=== PATIENT | female | born 1955 | race African-American/Black ===

== ENCOUNTER → 2019-04-24 | Outpatient (CLI) | payer BC ==
[~2019-04-24] MED LIST: ASPI-630 PO; LEVO75TA PO; OMEG1CAP28 PO
--- NOTE | 2019-04-24 15:08 | KCIC ---
BRAIN W/O CONTRAST History: Migraine. Ataxia. Syncope. History of laryngeal cancer. Technique: Multiplanar, multi sequential MR imaging was performed of the brain without contrast. Comparison: None Findings: No acute infarct. No intracranial hemorrhage. No mass effect. No hydrocephalus. Extra-axial spaces are unremarkable. Incidentally noted left frontal periventricular development of venous anomaly. Imaged orbits are unremarkable. Imaged paranasal sinuses and mastoid air cells are clear. Postoperative changes laryngectomy. Impression: 1. No acute intracranial abnormality. Electronically signed by: Driss Charles DO (04/24/2019 3:05 PM) [id number]
--- NOTE | 2019-04-24 18:00 | KCIC ---
DOPPLER CAROTID BILAT History: Syncope. Hypertension. Technique: Duplex sonography of the cervical portion of both carotid arteries was performed. Real-time grayscale, color flow Doppler, and Doppler spectral waveform analysis is performed. PQRS Compliance Statement - Stenosis calculations for CT, MR and conventional angiography are based upon measurement of the distal ICA diameter in accordance with the NASCET methodology. Stenosis calculations for carotid ultrasound studies are derived from validated velocity criteria which are known to correlate with the NASCET methodology. Findings: Right side: Peak systolic flow velocity of the CCA is 100 cm/sec. Peak systolic flow velocity of the ICA is 106 cm/sec. The ICA/CCA ratio is 1.06. Peak end diastolic flow velocity of the ICA is 39 cm/sec. The peak systolic velocity of the ECA is 53 cm/sec. Atheromatous plaque throughout the common, carotid bulb and internal carotid arteries.. Left side: Peak systolic flow velocity of the CCA is 88 cm/sec. Peak systolic flow velocity of the ICA is 146 cm/sec. The ICA/CCA ratio is 1.66. Peak end diastolic flow velocity of the ICA is 33 cm/sec. Peak systolic flow velocity of the ECA is 78 cm/sec. Atheromatous plaque throughout the left common carotid, carotid bulb and internal carotid artery.. Vertebral arteries: Bilateral vertebral arteries demonstrate antegrade flow. IMPRESSION: 1. Moderate (50-69 percent) stenosis of the left mid internal carotid artery. 2. Bilateral atheromatous plaque. Electronically signed by: Driss Charles DO (04/24/2019 5:58 PM) [id number]
== END | disposition home or self-care (01) ==
LOC: KCIC MRI 09:35
PROVIDERS: ATTEND Psychiatry & Neurology Neurology with Special Qualifications in Child Neurology
DX: I65.23 Occlusion and stenosis of bilateral carotid arteries (principal); I10 Essential (primary) hypertension; R55 Syncope and collapse; R27.0 Ataxia, unspecified; R51 Headache; Z85.21 Personal history of malignant neoplasm of larynx; Z87.891 Personal history of nicotine dependence
CPT/HCPCS: 70551; 93880